=== PATIENT | female | born 1970 | race Caucasian/White ===

== ENCOUNTER 2018-01-01 04:13 | Emergency (ER) | payer SELFPAY ==
[2018-01-01 04:58] LABS: CHLORIDE,CL 102 mEq/L (98-106); SODIUM,NA 136 mEq/L (136-145)
[2018-01-01 04:59] VITALS: BP 123/80
[2018-01-01] MEDS ORDERED: Lidocaine 1% 20 ML MDV ONE (05:00)
[2018-01-01] MEDS ORDERED: Ketorolac 60 MG/2 ML SDV IM ONE (05:05)
[2018-01-01] MEDS ORDERED: cefTRIAXone 1 GM Vial IM ONE (05:05)
[2018-01-01] MEDS ORDERED: Albuterol/Ipratropium 3.0-0.5 MG/3 ML Neb Soln NEB ONE (05:19)
--- NOTE | 2018-01-01 05:25 | EDM.PDOC ---
ED HPI GENERAL MEDICAL PROBLEM - General Chief Complaint: Back Pain or Injury Stated Complaint: L shoulder/back pain Time Seen by Provider: 01/01/18 04:55 Source of Information: Reports: Patient History Limitations: Reports: No Limitations - History of Present Illness INITIAL COMMENTS - FREE TEXT/NARRATIVE: Marilyn is a 47 yo female who presents to the ER with complaints of left upper chest/shoulder pain for the last 2 weeks. States she has been coughing a lot more the last 2 weeks as well, noticing it to be more sputum like; however, unable to cough anything up. Admits if she takes a deep breath the pain will intensify. States if you push on the chest wall as well the pain seems to worsen. Denies any discomfort with ROM of her shoulder. Describes the pain as being sharp. Hasn't had any fevers. Onset: Gradual Duration: Getting Worse Location: Reports: Chest, Back Quality: Reports: Ache, Sharp Severity: Moderate Improves with: Reports: None Worsens with: Reports: Breathing (deep) Left Back Pain Score (Numeric/FACES): 8 - Related Data Allergies Allergy/AdvReac Type Severity Reaction Status Date / Time No Known Allergies Allergy Verified 01/01/18 04:15 Home Meds: Home Meds Insulin Glarg,Human.Rec.Analog [LantUS Solostar] 40 units SUBCUT DAILY 04/05/16 [History] metFORMIN [Glucophage XR] 1,000 mg PO BIDMEALS #60 tab.er 04/09/16 [Rx] Albuterol/Ipratropium [DuoNeb 3.0-0.5 MG/3 ML] 3 ml .XX QID PRN #30 neb [Rx] Ketorolac Tromethamine 10 mg PO Q6H PRN #15 tablet 01/01/18 [Rx] Levofloxacin 500 mg PO DAILY #10 tablet 01/01/18 [Rx] Past Medical History Cardiovascular History: Reports: High Cholesterol Respiratory History: Reports: Bronchitis, Recurrent Endocrine/Metabolic History: Reports: Diabetes, Type II - Past Surgical History Female Surgical History: Reports: Section, Hysterectomy Social & Family History - Family History Family Medical History: Noncontributory - Tobacco Use Smoking Status *Q: Current Every Day Smoker Years of Tobacco use: 20 Packs/Tins Daily: 0.3 Used Tobacco, but Quit: No Second Hand Smoke Exposure: Yes - Recreational Drug Use Recreational Drug Use: No ED ROS GENERAL - Review of Systems Review Of Systems: See Below Constitutional: Denies: Fever, Chills HEENT: Reports: No Symptoms Respiratory: Reports: Wheezing, Pleuritic Chest Pain, Cough, Sputum. Denies: Shortness of Breath Cardiovascular: Reports: No Symptoms. Denies: Blood Pressure Problem GI/Abdominal: Reports: No Symptoms Musculoskeletal: Reports: Shoulder Pain (left anterior chest) Skin: Reports: No Symptoms Neurological: Reports: No Symptoms ED EXAM, GENERAL - Physical Exam Exam: See Below Exam Limited By: No Limitations General Appearance: Alert, Mild Distress Ears: Normal External Exam, Normal Canal, Hearing Grossly Normal, Normal TMs Nose: Normal Inspection, No Blood Throat/Mouth: Normal Inspection, Normal Lips, Normal Teeth, Normal Gums, Normal Oropharynx, Normal Voice, No Airway Compromise Head: Atraumatic, Normocephalic Neck: Normal Inspection, Supple Respiratory/Chest: Crackles (left lobe), Pleural Rub, Other (chest wall tenderness with palpation). No: Respiratory Distress Cardiovascular: Regular Rate, Rhythm, No Edema, No Murmur GI/Abdominal: Normal Bowel Sounds, Soft, No Organomegaly Neurological: Alert, Oriented, Normal Cognition Psychiatric: Normal Affect, Normal Mood Skin Exam: Warm, Dry, Intact, Normal Color, No Rash Course - Vital Signs Last Recorded V/S: Last Vital Signs Temp 96.7 F 01/01/18 04:17 Pulse 95 01/01/18 04:58 Resp 18 01/01/18 04:58 BP 123/80 01/01/18 04:58 Pulse Ox 98 01/01/18 04:58 - Orders/Labs/Meds Orders: Active Orders 24 hr Category Date Time Status RT Aerosol Therapy [RC] ASDIRECTED Care 01/01/18 05:19 Active Chest 2V [CR] Stat Exams 01/01/18 04:26 Taken Labs: Laboratory Tests 01/01/18 01/01/18 Range/Units 04:38 04:38 WBC 11.1 H (5.0-10.0) 10^3/uL RBC 4.20 (4.00-5.50) 10^6/uL Hgb 12.3 (12.0-16.0) g/dL Hct 36.5 L (37.0-47.0) % MCV 86.9 (82.0-94.0) fL MCH 29.3 (27.0-32.0) pg MCHC 33.7 (33.0-38.0) g/dL RDW Coeff of Humberto 14.0 (11.0-15.0) % Plt Count 310 (150-400) 10^3/uL Neut % (Auto) 74.4 (35-85) % Lymph % (Auto) 19.0 (10-55) % [place] % (Auto) 4.0 (0-16) % Eos % (Auto) 2.2 (0-5) % Baso % (Auto) 0.4 (0-3) % Neut # (Auto) 8.24 H (1.80-7.00) 10^3/uL Lymph # (Auto) 2.10 (1.00-4.80) 10^3/uL [place] # (Auto) 0.44 (0.00-0.80) 10^3/uL Eos # (Auto) 0.24 (0.00-0.45) 10^3/uL Baso # (Auto) 0.04 10^3/uL Sodium 136 (136-145) mEq/L Potassium 3.8 (3.5-5.0) mEq/L Chloride 102 (98-106) mEq/L Carbon Dioxide 23 (21-32) mmol/L BUN 11 (7-18) mg/dL Creatinine 0.7 (0.6-1.0) mg/dL Est Cr Clr Drug Dosing 97.65 mL/min Estimated GFR (MDRD) > 60 (>=60) mL/min Glucose 297 H D (75-99) mg/dL Calcium 8.9 (8.4-10.1) mg/dL Creatine Kinase 46 (21-215) U/L Troponin I < 0.017 (0.00-0.06) ng/mL C-Reactive Protein 10.9 H (0.2-0.8) mg/dL Meds: Medications Discontinued Medications Generic Name Dose Route Start Last Admin Trade Name Freq PRN Reason Stop Dose Admin Albuterol/Ipratropium 3 ml 01/01/18 05:19 01/01/18 05:20 Duoneb 3.0-0.5 Mg/3 Ml NEB 01/01/18 05:20 3 ml ONETIME ONE Administration Ceftriaxone Sodium 1 gm 01/01/18 05:05 01/01/18 05:13 Rocephin IM 01/01/18 05:06 1 gm ONETIME ONE Administration Ketorolac Tromethamine 60 mg 01/01/18 05:05 01/01/18 05:13 Toradol IM 01/01/18 05:06 60 mg ONETIME ONE Administration Lidocaine HCl Confirm 01/01/18 05:00 01/01/18 05:14 Xylocaine 1% Administered 01/01/18 05:01 2.1 ml Dose Administration 20 ml .ROUTE .STK-MED ONE Departure - Departure Time of Disposition: 05:35 Disposition: Home, Self-Care 01 Clinical Impression: Pneumonia, Pleurisy - Discharge Information Prescriptions: Albuterol/Ipratropium [DuoNeb 3.0-0.5 MG/3 ML] 3 ml .XX QID PRN #30 neb PRN Reason: Shortness Of Breath Ketorolac Tromethamine 10 mg PO Q6H PRN #15 tablet PRN Reason: Pain Levofloxacin 500 mg PO DAILY #10 tablet Instructions: Community-Acquired Pneumonia, Adult, [id number] Referrals: PCP,None [Primary Care Provider] - Forms: ED Department Discharge Additional Instructions: 1) Levofloxacin 500mg daily for 10 days 2) Toradol 10mg tablet - 1 tablet every 6-8 hours as needed for discomfort 3) Refrain from smoking 4) Recheck in clinic on Saturday 5) DuoNebs four times a day and as needed. 6) If any fevers, worsening of pain, productive cough, shortness of breath... return to ER. - Problem List & Annotations (1) Pleurisy SNOMED Code(s): 375042090 Code(s): R09.1 - PLEURISY Status: Acute Current Visit: Yes (2) Pneumonia SNOMED Code(s): 465347477 Code(s): J18.9 - PNEUMONIA, UNSPECIFIED ORGANISM Status: Acute Current Visit: Yes Qualifiers: Pneumonia type: due to unspecified organism Laterality: left Lung location: unspecified part of lung Qualified Code(s): J18.9 - Pneumonia, unspecified organism - My Orders Last 24 Hours: My Active Orders 01/01/18 04:26 Chest 2V [CR] Stat 01/01/18 05:19 RT Aerosol Therapy [RC] ASDIRECTED - Assessment/Plan Last 24 Hours: My Active Orders 01/01/18 04:26 Chest 2V [CR] Stat 01/01/18 05:19 RT Aerosol Therapy [RC] ASDIRECTED Plan: X-ray showed left upper and lower lobe pneumonia. DuoNeb given with noticeable relief of discomfort. Discussed inpatient vs outpatient treatment. With no fever and O2 saturation at 98-99% will discharge home today, which Marilyn was in agreement. 1 gram of Rocephin and 60 mg of Toradol was given intramuscularly. Pain was much improved prior to discharge. Please see additional instructions for discharge.
== END 2018-01-01 05:48 | disposition home or self-care (01) ==
LOC: CC.ED 04:13
DX: J18.9 Pneumonia, unspecified organism (principal); E78.00 Pure hypercholesterolemia, unspecified; E11.9 Type 2 diabetes mellitus without complications; F17.210 Nicotine dependence, cigarettes, uncomplicated; Z79.4 Long term (current) use of insulin; Z79.899 Other long term (current) drug therapy
CPT/HCPCS: 36415; 71046; 80048; 82550; 84484; 85025; 86140; 93005; 94640; 96372; 99284; J0696; J1885

== ENCOUNTER 2019-05-05 16:10 | Emergency (ER) | payer BC ==
[2019-05-05] MEDS ORDERED: Aspirin 81 MG Tab.Chew PO ONE (16:17)
--- NOTE | 2019-05-05 16:35 | EDM.PDOC ---
ED HPI GENERAL MEDICAL PROBLEM - General Chief Complaint: Chest Pain Stated Complaint: CHEST PAIN Time Seen by Provider: 05/05/19 16:35 Source of Information: Reports: Patient History Limitations: Reports: No Limitations - History of Present Illness INITIAL COMMENTS - FREE TEXT/NARRATIVE: Marilyn is a 49 year old female who presents to the ED with c/o mid sternal chest pain radiating to her left jaw and arm. She reports she has had a couple similar episodes the past few weeks. Does report she was at her agriculturist earlier this week and discussed these symptoms. 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 She reports last night she was experiencing some chest tightness and then earlier today she had onset of sharp/pressure like pain. She reports she has a constant dull ache and occasionally has sharp pain radiating to her left arm and jaw. Does admit to slight nausea, dizziness, and cough. Denies any vomiting, diarrhea , urinary symptoms. Does feel slightly more SOB than normal. Feels it is hard to take a deep breath. Left Chest Pain Score (Numeric/FACES): 5 - Related Data Allergies Allergy/AdvReac Type Severity Reaction Status Date / Time No Known Allergies Allergy Verified 05/05/19 16:29 Home Meds: Home Meds Insulin Glarg,Human.Rec.Analog [LantUS Solostar] 50 units SUBCUT QPM 04/05/16 [ History] metFORMIN [Glucophage XR] 1,000 mg PO BIDMEALS #60 tab.er 04/09/16 [Rx] Albuterol/Ipratropium [DuoNeb 3.0-0.5 MG/3 ML] 3 ml .XX QID PRN #30 neb [Rx] Albuterol Sulfate [Proair Hfa] 2 puff INH QID PRN 05/05/19 [History] Insulin Aspart [NovoLOG] 10 - 20 units SUBCUT QID PRN 05/05/19 [History] Itraconazole 200 cap PO BID 05/05/19 [History] Past Medical History Cardiovascular History: Reports: High Cholesterol Respiratory History: Reports: Bronchitis, Recurrent Endocrine/Metabolic History: Reports: Diabetes, Type II - Past Surgical History Female Surgical History: Reports: Section, Hysterectomy Social & Family History - Family History Family Medical History: Noncontributory ED ROS GENERAL - Review of Systems Review Of Systems: ROS reveals no pertinent complaints other than HPI. ED EXAM, GENERAL - Physical Exam Exam: See Below Exam Limited By: No Limitations General Appearance: Alert, WD/WN, No Apparent Distress Eye Exam: Bilateral Eye: EOMI, PERRL Head: Atraumatic, Normocephalic Neck: Normal Inspection, Supple, Non-Tender, Full Range of Motion Respiratory/Chest: No Respiratory Distress, No Accessory Muscle Use, Decreased Breath Sounds Cardiovascular: Normal Peripheral Pulses, Regular Rate, Rhythm, No Edema, No Gallop, No JVD, No Murmur, No Rub GI/Abdominal: Normal Bowel Sounds, Soft, Non-Tender, No Organomegaly, No Distention, No Abnormal Bruit, No Mass Back Exam: Normal Inspection, Full Range of Motion. No: CVA Tenderness (L), CVA Tenderness (R) Extremities: Normal Inspection, Normal Range of Motion, Non-Tender, Normal Capillary Refill, No Pedal Edema Neurological: Alert, Oriented, CN II-XII Intact, Normal Cognition, Normal Gait, Normal Reflexes, No Motor/Sensory Deficits Psychiatric: Anxious Skin Exam: Warm, Dry, Intact, Normal Color, No Rash Course - Vital Signs Last Recorded V/S: Last Vital Signs Temp 98.7 F 05/05/19 16:25 Pulse 86 05/05/19 17:56 Resp 16 05/05/19 17:56 BP 122/74 05/05/19 17:56 Pulse Ox 97 05/05/19 17:06 - Orders/Labs/Meds Orders: Active Orders 24 hr Category Date Time Status Chest 2V [CR] Stat Exams 05/05/19 17:03 Taken Labs: Laboratory Tests 05/05/19 05/05/19 05/05/19 Range/Units 16:30 16:30 16:30 WBC 11.0 H (5.0-10.0) 10^3/uL RBC 4.41 (4.00-5.50) 10^6/uL Hgb 13.1 (12.0-16.0) g/dL Hct 39.6 (37.0-47.0) % MCV 89.8 (82.0-94.0) fL MCH 29.7 (27.0-32.0) pg MCHC 33.1 (33.0-38.0) g/dL RDW Coeff of Humberto 14.5 (11.0-15.0) % Plt Count 382 (150-400) 10^3/uL Neut % (Auto) 54.2 (35-85) % Lymph % (Auto) 33.5 (10-55) % [place] % (Auto) 4.9 (0-16) % Eos % (Auto) 6.7 H (0-5) % Baso % (Auto) 0.7 (0-3) % Neut # (Auto) 5.97 (1.80-7.00) 10^3/uL Lymph # (Auto) 3.69 (1.00-4.80) 10^3/uL [place] # (Auto) 0.54 (0.00-0.80) 10^3/uL Eos # (Auto) 0.74 H (0.00-0.45) 10^3/uL Baso # (Auto) 0.08 10^3/uL PT 9.3 L (9.7-12.3) SEC INR 0.90 L (0.92-1.18) APTT 25.7 (23.2-32.3) SEC Sodium 140 (136-145) mEq/L Potassium 3.8 (3.5-5.0) mEq/L Chloride 104 (98-106) mEq/L Carbon Dioxide 24 (21-32) mmol/L BUN 11 (7-18) mg/dL Creatinine 0.9 (0.6-1.0) mg/dL Est Cr Clr Drug Dosing 74.34 mL/min Estimated GFR (MDRD) > 60 (>=60) mL/min Glucose 201 H D (75-99) mg/dL Calcium 8.8 (8.4-10.1) mg/dL Lactate Dehydrogenase 123 (100-190) U/L Creatine Kinase 159 (21-215) U/L Troponin I < 0.017 (0.00-0.06) ng/mL Meds: Medications Discontinued Medications Generic Name Dose Route Start Last Admin Trade Name Freq PRN Reason Stop Dose Admin Aspirin 324 mg 05/05/19 16:17 05/05/19 16:17 Aspirin PO 05/05/19 16:18 324 mg ONETIME ONE Administration Nitroglycerin 0.4 mg 05/05/19 16:19 05/05/19 16:59 Nitrostat SL 0.4 mg Q5M PRN Administration Chest Pain Pantoprazole Sodium 40 mg 05/05/19 17:15 05/05/19 17:20 Protonix Iv IVPUSH 40 mg Q24H ANJUM Administration Departure - Departure Time of Disposition: 17:51 Disposition: Home, Self-Care 01 Condition: Good Clinical Impression: Atypical chest pain Instructions: Nonspecific Chest Pain, [id number] Referrals: PCP,Unknown [Primary Care Provider] - Forms: ED Department Discharge Additional Instructions: - No strenuous activity - Rest and push fluids - Trial omeprazole (Prilosec) daily to see if this helps symptoms - Tylenol or ibuprofen as needed - Follow up for stress test as scheduled - Follow up with Saira ARZATE for recheck in next 5-7 days, sooner if symptoms persist - My Orders Last 24 Hours: My Active Orders 05/05/19 17:03 Chest 2V [CR] Stat - Assessment/Plan Last 24 Hours: My Active Orders 05/05/19 17:03 Chest 2V [CR] Stat Plan: Patient was given aspirin and 2 doses of nitro while lab work pending, with some relief. EKG NSR with no ST elevation. Lab work all stable. Discussed this with patient. Patient is already scheduled to have stress test per agriculturist. Discussed that this is next step in workup. Discussed differentials for chest pain including GERD, anxiety, panic attacks. Patient does report relief of chest pain and reports it comes in waves with a constant ache and then a sharp pain. I recommended that she follow up with her PCP for further evaluation and workup. Patient will be discharged home.
[2019-05-05] MEDS: Nitroglycerin 0.4 MG Tab.SL SL PRN ×2 (16:45→16:59)
[2019-05-05 16:50] LABS: CHLORIDE,CL 104 mEq/L (98-106); SODIUM,NA 140 mEq/L (136-145)
[2019-05-05] MEDS ORDERED: Pantoprazole 40 MG Vial IVPUSH SCH (17:15)
[2019-05-05 17:58] VITALS: BP 122/74; PULSE 86
== END 2019-05-05 18:05 | disposition home or self-care (01) ==
LOC: CC.ED 16:10
DX: R07.89 Other chest pain (principal); E78.00 Pure hypercholesterolemia, unspecified; Z79.4 Long term (current) use of insulin; Z79.899 Other long term (current) drug therapy
CPT/HCPCS: 36415; 71046; 80048; 82550; 83615; 84484; 85025; 85610; 85730; 93005; 96374; 99285; A9270; C9113

== ENCOUNTER 2019-10-14 10:57 | Emergency (ER) | payer OTHER, BC ==
[2019-10-14] MEDS ORDERED: Cyclobenzaprine 10 MG Tab PO ONE (10:58)
[2019-10-14 10:59] VITALS: BP 149/86; PULSE 94
[2019-10-14] MEDS ORDERED: Ondansetron 4 MG Tab.DIS PO ONE (11:32)
--- NOTE | 2019-10-14 11:39 | EDM.PDOC ---
ED HPI GENERAL MEDICAL PROBLEM - General Chief Complaint: General Stated Complaint: fall Time Seen by Provider: 10/14/19 11:15 Source of Information: Reports: Patient History Limitations: Reports: No Limitations - History of Present Illness INITIAL COMMENTS - FREE TEXT/NARRATIVE: Marilyn is a 49 yo female who presents to the ED, ambulatory, after falling at work. She states she was outside and walking in to work when she slipped on the ice and fell face forward. She states she has a lot of nasal discomfort, headache and neck pain at the base of her skull. She admits she was able to get up under her own power. She denies any loss of consciousness. Denies any extremity, chest or pelvic discomfort. No blurry vision. Denies any difficulty with ambulation. No parathesias or extremity weakness. Location: Reports: Head, Neck Associated Symptoms: Reports: Nausea/Vomiting (nauseated). Denies: Confusion Face/Facial Pain Score (Numeric/FACES): 7 - Related Data Allergies Allergy/AdvReac Type Severity Reaction Status Date / Time No Known Allergies Allergy Verified 10/14/19 10:59 Home Meds: Home Meds Insulin Glarg,Human.Rec.Analog [LantUS Solostar] 50 units SUBCUT QPM 04/05/16 [ History] metFORMIN [Glucophage XR] 1,000 mg PO BIDMEALS #60 tab.er 04/09/16 [Rx] Insulin Aspart [NovoLOG] 10 - 20 units SUBCUT DAILY PRN 05/05/19 [History] Itraconazole 200 cap PO BID 05/05/19 [History] Diethylpropion HCl [Diethylpropion HCl ER] 75 mg PO DAILY 10/14/19 [History] Past Medical History Cardiovascular History: Reports: High Cholesterol Respiratory History: Reports: Bronchitis, Recurrent Other Respiratory History: HYSTOPLASMOSIS Endocrine/Metabolic History: Reports: Diabetes, Type II - Past Surgical History Female Surgical History: Reports: Section, Hysterectomy Social & Family History - Family History Family Medical History: Noncontributory - Caffeine Use Caffeine Use: Reports: Coffee, Soda ED ROS GENERAL - Review of Systems Review Of Systems: See Below Constitutional: Reports: No Symptoms HEENT: Reports: Nose Pain. Denies: Dental Pain, Nosebleed, Throat Pain, Vision Change Respiratory: Reports: No Symptoms Cardiovascular: Reports: No Symptoms GI/Abdominal: Reports: No Symptoms : Reports: No Symptoms Musculoskeletal: Reports: Neck Pain, Muscle Stiffness. Denies: Shoulder Pain, Arm Pain, Back Pain, Leg Pain Skin: Reports: No Symptoms Neurological: Reports: Headache. Denies: Confusion, Dizziness, Numbness, Paresthesia, Tingling, Trouble Speaking, Difficulty Walking, Weakness, Change in Speech, Gait Disturbance Psychiatric: Reports: No Symptoms ED EXAM, GENERAL - Physical Exam Exam: See Below Exam Limited By: No Limitations General Appearance: Alert, WD/WN, No Apparent Distress (appears to be in some discomfort) Eye Exam: Bilateral Eye: EOMI, Normal Inspection, PERRL Ears: Normal External Exam, Normal Canal, Hearing Grossly Normal, Normal TMs Nose: No Blood, Other (small abrasion to bridge of nose). No: Nasal Deformity, Nasal Drainage, Clear Rhinorrhea, Nasal Flaring Throat/Mouth: Normal Inspection, Normal Lips, Normal Teeth, Normal Gums, Normal Oropharynx, Normal Voice, No Airway Compromise Head: Facial Tenderness (bilateral zygomatic arches), Sinus Tenderness Neck: Tender Midline Respiratory/Chest: No Respiratory Distress, Lungs Clear, Normal Breath Sounds, No Accessory Muscle Use Cardiovascular: Regular Rate, Rhythm Extremities: Normal Inspection, Normal Range of Motion, Non-Tender Neurological: Alert, Oriented, CN II-XII Intact, Normal Cognition, Normal Gait, Normal Reflexes, No Motor/Sensory Deficits Psychiatric: Normal Affect, Normal Mood Skin Exam: Warm, Dry, Intact, Normal Color, No Rash Course - Vital Signs Last Recorded V/S: Last Vital Signs Temp 98.9 F 10/14/19 10:57 Pulse 94 10/14/19 10:57 Resp 16 10/14/19 10:57 BP 149/86 H 10/14/19 10:57 Pulse Ox 100 10/14/19 10:57 - Orders/Labs/Meds Orders: Active Orders 24 hr Category Date Time Status Cervical Spine wo Cont [CT] Stat Exams 10/14/19 11:32 Taken Head wo Cont [CT] Stat Exams 10/14/19 11:32 Taken Max Facial Sinus wo Cont [CT] Stat Exams 10/14/19 11:32 Taken Ketorolac [Toradol] Med 10/14/19 12:48 Once 60 mg IM ONETIME ONE Orphenadrine [Norflex] Med 10/14/19 12:48 Once 60 mg IM ONETIME ONE Medication Orders Ketorolac Tromethamine (Toradol) 60 mg IM ONETIME ONE Stop: 10/14/19 12:49 Orphenadrine Citrate (Norflex) 60 mg IM ONETIME ONE Stop: 10/14/19 12:49 Meds: Medications Generic Name Dose Route Start Last Admin Trade Name Freq PRN Reason Stop Dose Admin Ketorolac Tromethamine 60 mg 10/14/19 12:48 Toradol IM 10/14/19 12:49 ONETIME ONE Orphenadrine Citrate 60 mg 10/14/19 12:48 Norflex IM 10/14/19 12:49 ONETIME ONE Discontinued Medications Generic Name Dose Route Start Last Admin Trade Name Freq PRN Reason Stop Dose Admin Ondansetron HCl 4 mg 10/14/19 11:32 10/14/19 11:35 Zofran Odt PO 10/14/19 11:33 4 mg ONETIME ONE Administration - Re-Assessments/Exams Free Text/Narrative Re-Assessment/Exam: 10/14/19 11:40 On initial exam after finding midline cervical tenderness, Marilyn was placed in a C-collar. Will get cervical clearance with CT of the cervical spine, currently pending. GCS 15 upon arrival and had remained normal. Departure - Departure Time of Disposition: 13:00 Disposition: Home, Self-Care 01 Clinical Impression: Contusion of nose Qualifiers: Encounter type: initial encounter Qualified Code(s): S00.33XA - Contusion of nose, initial encounter Cervical strain, acute Qualifiers: Encounter type: initial encounter Qualified Code(s): S16.1XXA - Strain of muscle, fascia and tendon at neck level, initial encounter - Discharge Information Forms: ED Department Discharge Additional Instructions: 1) No fractures on imaging. Head was normal, no bleeds or fractures. Cervical spine is normal. Ct of the facial bones is normal. 2) Recommend Tylenol and/or ibuprofen for discomfort. Two shots given today ( Ketorolac and Norflex). One is a strong anti-inflammatory and other is a muscle relaxer. 3) Take home tablets of Cyclobenzaprine 10mg - 1 tablet every 8 hours as needed. May cause drowsiness. Recommend taking first one this evening at bedtime 4) Apply ice to sore areas, 20 minutes at a time 5) Rest today. 6) Follow up if any concerns. Sepsis Event Note - Evaluation Sepsis Screening Result: No Definite Risk - Focused Exam Vital Signs: Vital Signs Temp Pulse Resp BP Pulse Ox 10/14/19 10:57 98.9 F 94 16 149/86 H 100 Date Exam was Performed: 10/14/19 Time Exam was Performed: 12:49 - Problem List & Annotations (1) Cervical strain, acute SNOMED Code(s): 492456906 Code(s): S16.1XXA - STRAIN OF MUSCLE, FASCIA AND TENDON AT NECK LEVEL, INIT Status: Acute Current Visit: Yes Qualifiers: Encounter type: initial encounter Qualified Code(s): S16.1XXA - Strain of muscle, fascia and tendon at neck level, initial encounter (2) Contusion of nose SNOMED Code(s): 19018039 Code(s): S00.33XA - CONTUSION OF NOSE, INITIAL ENCOUNTER Status: Acute Current Visit: Yes Qualifiers: Encounter type: initial encounter Qualified Code(s): S00.33XA - Contusion of nose, initial encounter - My Orders Last 24 Hours: My Active Orders 10/14/19 11:32 Cervical Spine wo Cont [CT] Stat Head wo Cont [CT] Stat Max Facial Sinus wo Cont [CT] Stat 10/14/19 12:48 Ketorolac [Toradol] 60 mg IM ONETIME ONE Orphenadrine [Norflex] 60 mg IM ONETIME ONE - Assessment/Plan Last 24 Hours: My Active Orders 10/14/19 11:32 Cervical Spine wo Cont [CT] Stat Head wo Cont [CT] Stat Max Facial Sinus wo Cont [CT] Stat 10/14/19 12:48 Ketorolac [Toradol] 60 mg IM ONETIME ONE Orphenadrine [Norflex] 60 mg IM ONETIME ONE Plan: CT of the head, cervical spine and maxillofacial bones was negative. No acute abnormalities. Will look at discharge at this time. See additional instructions. Cervical spine cleared with removal of c-collar. Full ROM of neck without discomfort.
[2019-10-14] MEDS ORDERED: Ketorolac 60 MG/2 ML SDV IM ONE (12:48)
[2019-10-14] MEDS ORDERED: Take Home: Cyclobenzaprine 10 MG Tab, 4 Tab Pack PO ONE (12:56)
== END 2019-10-14 13:24 | disposition home or self-care (01) ==
LOC: CC.ED 10:57
DX: S16.1XXA Strain of muscle, fascia and tendon at neck level, initial encounter (principal); S00.33XA Contusion of nose, initial encounter; E11.9 Type 2 diabetes mellitus without complications; E78.00 Pure hypercholesterolemia, unspecified; Z79.4 Long term (current) use of insulin; Z79.899 Other long term (current) drug therapy; W00.0XXA Fall on same level due to ice and snow, initial encounter; Y93.01 Activity, walking, marching and hiking; Y99.0 Civilian activity done for income or pay
CPT/HCPCS: 70450; 70486; 72125; 96372; 99283-25; A9270-GY; J1885; J2360

== ENCOUNTER → 2021-06-09 | Day surgery (SDC) | payer BC ==
[~2021-06-09] MED LIST: Ketamine 200 MG/20 ML MDV ONE; Lactated Ringers 1,000 ML IV SCH; Lidocaine 2% 5 ML SDV ONE; Propofol 200 MG/20 ML SDV ONE; fentaNYL 100 MCG/2 ML SDV ONE
[2021-06-09 10:19] VITALS: BP 146/92; PULSE 83
--- NOTE | 2021-06-09 11:44 | OR ---
DATE OF OPERATION: 06/09/2021 PREOPERATIVE DIAGNOSIS: EPIGASTRIC PAIN. POSTOPERATIVE DIAGNOSIS: EPIGASTRIC PAIN. SURGEON: Phani Maldonado MD PROCEDURE: DIAGNOSTIC ESOPHAGOGASTRODUODENOSCOPY WITH BIOPSIES X4, LEOPOLDO. ANESTHESIA: MAC. COMPLICATIONS: None. SPECIMEN: 1. Antral biopsy x2. 2. Fundal biopsy x2. 3. Antral LEOPOLDO. FINDINGS: 1. Full-length diagnostic EGD. 2. Gastritis, mild but active diffusely. RECOMMENDATIONS: Continue current medical therapy. INDICATIONS: The patient presented to Saira Alena for some mid epigastric pain. She was concerned about peptic ulcer disease and sent the patient for diagnostic EGD. DESCRIPTION OF PROCEDURE: The patient was prepped and draped, placed in the left lateral decubitus position. A lubricated Olympus gastroscope was inserted over a bit, advanced to cricopharyngeus and easily intubated into the esophagus. The esophageal lining was completely benign in its entire course. The Z-line was crisp and sharp at 40 cm. There was no hernia present. No spontaneous reflux seen. No signs of distal esophagitis, stricturing, or ulceration or Nelson's changes. The scope was advanced into the stomach, through the pylorus, and into the second portion of the duodenum. This and the duodenal bulb were completely benign. The scope was brought back into the stomach and retroflexed. The upper fundus and cardia were unremarkable, but the midportion of the fundus and down through the entire antrum the patient had mild and active gastritis without ulceration or erosions, more significant in the antrum. Two biopsies of both the fundus and antrum were taken along with a CLOtest from the antrum. Air was then suctioned and the scope removed without complication. BLAINE/GLADIS /[id number]
== END ==
LOC: CC.SDS 08:04
PROVIDERS: ATTEND Family Medicine
DX: K31.89 Other diseases of stomach and duodenum (principal); K29.70 Gastritis, unspecified, without bleeding; E11.9 Type 2 diabetes mellitus without complications; K21.9 Gastro-esophageal reflux disease without esophagitis; F17.210 Nicotine dependence, cigarettes, uncomplicated; Z79.899 Other long term (current) drug therapy; Z98.890 Other specified postprocedural states; Z79.84 Long term (current) use of oral hypoglycemic drugs
CPT/HCPCS: 00731; 87081; J2704; J3010; J7120

== ENCOUNTER → 2021-08-11 | Day surgery (SDC) | payer BC ==
[~2021-08-11] MED LIST changes: -Ketamine 200 MG/20 ML MDV ONE; -Lidocaine 2% 5 ML SDV ONE; -fentaNYL 100 MCG/2 ML SDV ONE
[2021-08-11 09:17] VITALS: BP 129/78; PULSE 84
--- NOTE | 2021-08-11 13:22 | OR ---
DATE OF OPERATION: 08/11/2021 PREOPERATIVE DIAGNOSIS: COLITIS. POSTOPERATIVE DIAGNOSIS: COLITIS. SURGEON: Phani Maldonado MD PROCEDURE: FULL-LENGTH DIAGNOSTIC COLONOSCOPY WITH RANDOM BIOPSIES X5. ANESTHESIA: MAC. COMPLICATIONS: None. SPECIMEN: Random colon biopsies x5 from terminal ileum to rectum. FINDINGS: 1. Full-length diagnostic colonoscopy. 2. Normal exam. RECOMMENDATIONS: Medical followup with Saira Carvajal pending path reports. INDICATIONS: Marilyn was sent for what sounds like chronic abdominal pain and possible colitis. She has never had a prior colonoscopy and diagnostic scope was recommended. DESCRIPTION OF PROCEDURE: The patient was prepped and draped, placed in the left lateral decubitus position. A lubricated Olympus colonoscope was inserted and with ease advanced to the cecum. Direct visualization of the ileocecal valve and appendiceal orifice was accomplished. The bowel prep was excellent. The scope was intubated into the terminal ileum which was normal. Biopsy was taken. Throughout the entire length of the colon, I could find no polyps, masses, ulceration, or bleeding sites. No vascular abnormalities or obvious signs of colitis. There were no diverticula. Did do random biopsies including the terminal ileum at the ascending, transverse, sigmoid, and rectal areas, but no gross abnormalities were seen. Retroflexion of the scope in the rectum showed no perianal lesions. Air was suctioned, the scope removed without complication. BLAINE/GLADIS /[id number]
== END ==
LOC: CC.SDS 07:25
PROVIDERS: ATTEND Family Medicine
DX: K52.9 Noninfective gastroenteritis and colitis, unspecified (principal); E78.5 Hyperlipidemia, unspecified; G47.00 Insomnia, unspecified; E11.40 Type 2 diabetes mellitus with diabetic neuropathy, unspecified; F17.200 Nicotine dependence, unspecified, uncomplicated; E66.01 Morbid (severe) obesity due to excess calories; I10 Essential (primary) hypertension; Z79.899 Other long term (current) drug therapy; Z79.84 Long term (current) use of oral hypoglycemic drugs; Z79.4 Long term (current) use of insulin; Z98.890 Other specified postprocedural states; Z68.35 Body mass index [BMI] 35.0-35.9, adult
CPT/HCPCS: 00811; J2704; J7120

== ENCOUNTER 2021-11-11 06:20 | Emergency (ER) | payer BC ==
[2021-11-11 06:23] VITALS: BP 155/89; PULSE 95
[2021-11-11 07:10] LABS: CHLORIDE,CL 102 mEq/L (98-106); SODIUM,NA 140 mEq/L (136-145)
== END 2021-11-11 07:37 | disposition home or self-care (01) ==
LOC: CC.ED 06:20
DX: J40 Bronchitis, not specified as acute or chronic (principal); I10 Essential (primary) hypertension; E11.9 Type 2 diabetes mellitus without complications; Z79.4 Long term (current) use of insulin; Z79.899 Other long term (current) drug therapy; Z20.822 Contact with and (suspected) exposure to COVID-19
CPT/HCPCS: 36415; 71046; 80053; 82550; 83605; 83615; 84484; 85025; 85379; 85610; 86140; 93005; 99285-25; U0002

== ENCOUNTER 2023-07-28 11:25 | Emergency (ER) | payer BC ==
[2023-07-28 11:36] VITALS: BP 141/93; PULSE 106
[2023-07-28] MEDS ORDERED: Lidocaine 1% 5 ML VIAL INJECT ONE (11:40)
[2023-07-28] MEDS ORDERED: Diphtheria,Pertussis(Acell),Tetanus Vaccine 0.5 ML Syringe IM ONE (11:46)
== END 2023-07-28 12:11 | disposition home or self-care (01) ==
LOC: CC.ED 11:25
DX: S61.211A Laceration without foreign body of left index finger without damage to nail, initial encounter (principal); E11.9 Type 2 diabetes mellitus without complications; Z79.4 Long term (current) use of insulin; Z23 Encounter for immunization; Z98.890 Other specified postprocedural states; W26.0XXA Contact with knife, initial encounter
CPT/HCPCS: 12001; 90471; 90715; 99282-25; 99283; J3490